=== PATIENT | female | born 1940 | race Caucasian/White ===

== ENCOUNTER 2017-05-29 20:19 | Inpatient (IN) ==
[2017-05-29 21:06] LABS: EOS# 0.03 X1000 (0.0-0.7); EOS% 1.8 % (0.0-10.0); HEMATOCRIT 17.2 % (37.0-47.0); HEMOGLOBIN 5.6 g/dL (12.0-16.0); LYMPH# 0.93 X1000 (1.2-3.4); LYMPH% 56.7 % (20.5-51.1); MANUAL DIFF NEEDED? NO; MCH 31.3 PG (27-31); MCHC 32.6 g/dL (33-37); MCV 96.1 FL (81-99); MONO# 0.15 X1000 (0.11-0.59); MONO% 9.1 % (1.7-9.3); MPV 11.8 FL (7.4-10.4); NEUT% 32.4 % (42.2-75.2); PLT 143 X1000 (130-400); RBC 1.79 XMIL (4.2-5.4)
[2017-05-29 21:18] LABS: AGAP 12; ALKALINE PHOSPHATASE 90 U/L (32-104); AMYLASE 53 U/L (20-200); BUN 11 mg/dL (8-22); CALCIUM 9.2 mg/dL (8.8-10.2); CHLORIDE 101 mmol/L (98-107); CK PROFILE 36 U/L (24-173); COSMO 273; GOT 24 U/L (10-30); GPT 16 U/L (10-36); LIPASE 58 U/L (13-60); POTASSIUM 3.9 mmol/L (3.5-5.1); SODIUM 136 mmol/L (136-145); TCO2 23 mmol/L (25-35); TOTAL BILIRUBIN 1.91 mg/dL (0.20-1.00); TOTAL PROTEIN 7.5 g/dL (6.3-8.3)
--- NOTE | 2017-05-29 22:22 | PROVIDER DOCUMENTATION ---
This chart was entered by Mariana Mena Scribe, acting as scribe for Jelani Castro Jr, MD. HPI-General Adult - General Chief Complaint: Generalized Pain Stated Complaint: LOW OXYGEN Time Seen by Provider: 05/29/17 21:13 Source: family Allergies/Adverse Reactions: Patient Allergies Allergy/AdvReac Type Severity Reaction Status Date / Time No Known Allergies Allergy Verified 05/29/17 21:42 - History of Present Illness -Gen Adult Nature of Presenting Problems: 76 Y/O F presents to ED with Generalized Pain. Pt family states that she has MDS , anemia, hx of Heart Attack Pt seen by Dr. Lawton. Pt states she has chronic arm pain but has worsened today, generalized Pain. Vomiting, constant burping. Pt had a Blood transfusion 4 units Memorial Day weekend. Location of Pain/Injury: reports: generalized Pain Radiation: reports: arm(s) Quality of Pain: reports: aching Severity: reports: moderate Onset/Duration: reports: this afternoon Timing: reports: still present Context/Activities at Onset: reports: none Associated Symptoms: reports: arm pain, muscle aches, vomiting. denies: cough, nausea Review of Systems - Adult - REVIEW OF SYSTEMS - ADULT Constitutional: denies: chills, fever Eyes: reports: no symptoms reported Ears, Nose, Mouth & Throat: reports: no symptoms reported Cardiovascular: reports: no symptoms reported Respiratory: reports: no symptoms reported Gastrointestinal: reports: vomiting. denies: abdominal pain, diarrhea, nausea Genitourinary: reports: no symptoms reported Musculoskeletal: reports: muscle aches. denies: joint pain Integumentary: reports: no symptoms reported Neurological: reports: no symptoms reported Psychiatric: reports: no symptoms reported Endocrine: reports: no symptoms reported Hematologic/Lymphatic: reports: no symptoms reported Allergic/Immunologic: reports: no symptoms reported All Other Systems: Reviewed and Negative Past History - Adult - PAST MEDICAL HISTORY-ADULT Review of Records: reports: Old Records Reviewed, Nursing Assessment Review, Medications Reviewed, Social history reviewed & non-contributory. Physical Exam-General - CONSTITUTIONAL General Appearance: no apparent distress, obese - EYES Eyes: pink conjunctivae, anisocoria, conjuctival exudate - HEAD, EARS, NOSE, MOUTH & THROAT HENMT: moist mucous membranes, normal ENT inspection - NECK Neck: full range of motion, supple, normal inspection - RESPIRATORY Respiratory: lungs clear, normal breath sounds - CARDIOVASCULAR Cardiovascular: normal peripheral pulses, regular rate, rhythm - GASTROINTESTINAL (ABDOMEN) Abdominal Exam: non tender, soft - LYMPHATIC Lymphatic: no adenopathy - MUSCULOSKELETAL Back Exam: normal inspection, no CVA tenderness Extremity: normal range of motion, non-tender - SKIN Integumentary: normal color, normal turgor - PSYCHIATRIC Psych/Mental Status: normal mood/affect, normal thought content, normal thought process, oriented x 3 Progress - PLAN OF CARE/RESULTS Progress/Plan/Lab Results: Vital Signs - 8 hr 05/29/17 20:25 Temperature 98.4 F Pulse Rate 87 Respiratory Rate 14 Blood Pressure 118/51 O2 Sat by Pulse Oximetry 100 Laboratory Results - last 24 hr 05/29/17 05/29/17 05/29/17 20:34 20:34 20:34 WBC 1.64 L RBC 1.79 L Hgb 5.6 L* Hct 17.2 L MCV 96.1 MCH 31.3 H MCHC 32.6 L RDW Std Deviation 24.5 H Plt Count 143 MPV 11.8 H Immature Gran % (Auto) 0.0 Neut % (Auto) 32.4 L Lymph % (Auto) 56.7 H Vermilion % (Auto) 9.1 Eos % (Auto) 1.8 Baso % (Auto) 0.0 Immature Gran # (Auto) 0.00 Neut # (Auto) 0.53 L Lymph # (Auto) 0.93 L Vermilion # (Auto) 0.15 Eos # (Auto) 0.03 Baso # (Auto) 0.00 Sodium 136 Potassium 3.9 Chloride 101 Carbon Dioxide 23 L Anion Gap 12 BUN 11 Creatinine 0.7 Estimated GFR/1.73 m2 > 60 BUN/Creatinine Ratio 16 Glucose 123 H Calculated Osmolality 273 Calcium 9.2 Total Bilirubin 1.91 H AST 24 ALT 16 Alkaline Phosphatase 90 Creatine Kinase 36 Troponin T 0.014 Total Protein 7.5 Albumin 4.0 Globulin 3.5 Albumin/Globulin Ratio 1.1 Amylase 53 Lipase 58 Orders Category Date Time Status AMYLASE [CHEM] Stat Lab 05/29/17 20:34 Completed CBC WITH ELECTRONIC DIFF [HEME] Stat Lab 05/29/17 20:34 Completed CK PROFILE [SP CHEM] Stat Lab 05/29/17 20:34 Completed COMPREHENSIVE METABOLIC PANEL [CHEM] Stat Lab 05/29/17 20:34 Completed LIPASE [CHEM] Stat Lab 05/29/17 20:34 Completed PROTIME WITH INR [COAG] Stat Lab 05/29/17 20:34 Received TROPONIN T Stat Lab 05/29/17 20:34 Completed EKG [EKG] Stat Ther 05/29/17 20:27 Ordered Result Diagrams: 05/29/17 20:34 05/29/17 20:34 - EKG 1 Time of EKG reading by physician:: 20:30 EKG Read and Signed by:: Jelani Castro Jr EKG Interpretation (*Must complete 3 of following elements*): Normal Rate: 91 Rhythm: NSR Comments: Anteroseptal infract,Abnormal ECG - CONSULTS/PCP/HOSPITALIST Notification #1 *Consult/PCP/Hospitalist*: Dr. Avelar Time Discussed: 22:05 Reason/Comments: Admit Consult Disposition: Admit (Admit Accepted) Departure - Departure Date of Disposition Decision: 05/29/17 Time of Disposition Decision: 22:14 DIAGNOSIS: Myelodysplastic disease, not classified Anemia Qualifiers: Anemia type: unspecified type Qualified Code(s): D64.9 - Anemia, unspecified Disposition: ADMITTED INPATIENT 09 Certified Medical Emergency: Emergent Condition: Fair Referrals and Follow-Ups: Chiqutia Jessica [Primary Care Provider] - - Critical Care Note This patient required my direct & personal management of CC.: No This chart was documented by the indicated scribe, (Mariana Mena Scribe) and accurately reflects the services I performed and decisions made by me, Jelani Castro Jr, MD, as attested by the provider's signature.
[2017-05-29 23:45] LABS: PROTIME 10.5 Seconds (9.2-11.7)
[2017-05-30] MEDS ORDERED: PEPCID IV ONE (00:09)
[2017-05-30] MEDS ORDERED: MORPHINE IV ONE ×2 (00:09→01:07)
[2017-05-30] MEDS ORDERED: SODIUM CHLORIDE 0.9% INJ ONE (00:09)
[2017-05-30] MEDS ORDERED: NS 250 ML ONE (00:17)
[2017-05-30] MEDS ORDERED: MORPHINE IV PRN ×2 (00:43→01:07)
[2017-05-30] MEDS ORDERED: ZOFRAN IV PRN (00:44)
[2017-05-30] MEDS ORDERED: G.I. COCKTAIL PO ONE (00:44)
[2017-05-30] MEDS ORDERED: TYLENOL PO ONE (01:06)
[2017-05-30] MEDS ORDERED: MYLICON PO PRN (01:07)
[2017-05-30] MEDS ORDERED: CHOLECALCIFEROL 50000 UNIT PO SCH (01:15)
[2017-05-30] MEDS: BENADRYL PO ONE ×2 (01:46→08:24)
--- NOTE | 2017-05-30 05:31 | EKG Report ---
Test Performed on : 05/29/2017 8:30:07 PM Test Reason : PAIN. Blood Pressure : / mmHG Vent. Rate : 091 BPM Atrial Rate : 091 BPM P-R Int : 140 ms QRS Dur : 082 ms QT Int : 392 ms P-R-T Axes : 042 029 036 degrees QTc Int : 482 ms Normal sinus rhythm. Anteroseptal infarct , age undetermined Abnormal ECG No previous ECGs available Unconfirmed Result
--- NOTE | 2017-05-30 06:16 | HISTORY AND PHYSICAL ---
CHIEF COMPLAINT: Right arm pain. HISTORY OF PRESENT ILLNESS: This is a 76-year-old female who came in from home with complaints of right-sided arm pain. She has a history of myelodysplastic syndrome. I think it has been relatively recently diagnosed. She had transfusions done about a month ago. She is seen by the [facility] in [place]. I am not sure who her primary oncologist is. Her family is uncertain about that. I think she was diagnosed with it recently after bone marrow biopsy because she had sustained anemia then. She has been complaining of pain, constant burping, vomiting, intermittent emesis and she is still having those issues now. Her hemoglobin was 5.6, so she was admitted for transfusion essentially. PAST MEDICAL HISTORY: 1. MDS. 2. Hypertension. 3. CAD. 4. Hypothyroidism. 5. Dyslipidemia. PAST SURGICAL HISTORY: She has had the cholecystectomy. SOCIAL HISTORY: No tobacco or ethanol. ALLERGIES: No known drug allergies. REVIEW OF SYSTEMS: Negative x10 point review of systems. All other systems reviewed and are negative. PHYSICAL EXAMINATION: VITAL SIGNS: Blood pressure 103/65, heart rate of 93, respiratory rate 18, temp 98.4 degrees. GENERAL: A well-developed female, in no acute distress. HEAD: Normocephalic, atraumatic. EYES: Pupils equal, round, reactive to light. Extraocular movements were intact. EAR/NOSE/THROAT: She had moist mucous membranes. NECK: Supple. CARDIOVASCULAR: Regular rate and rhythm. No murmurs, gallops, or rubs. PULMONARY: Bilateral breath sounds. Clear to auscultation. GI: Soft, nontender, nondistended. Bowel sounds were positive. LABORATORY DATA: White count 1.6. Hemoglobin 5 and hematocrit 17, platelets of 143,000. CMP was normal except for T bilirubin of 1.9. Troponins were negative. EKG showed possible anterior septal defect, and was otherwise negative. I do not think any imaging was done. ASSESSMENT: This is a 76-year-old female with myelodysplastic syndrome, who presents with symptomatic anemia and then kind of various gastrointestinal complaints. 1. Symptomatic anemia, myelodysplastic syndrome. We will give 2 units of blood and repeat hemoglobin and hematocrit and follow. I am going to get representatives from [facility] to check on her while she is here. Further workup as dictated per them. I will check a Hemoccult. 2. Gastrointestinal. She is having some frequent dyspepsia. We will treat with proton pump inhibitor. I am going to start off with just plain films of her abdomen. She does not have a gallbladder anymore. I do not think she is having any biliary colic despite her bilirubin being slightly elevated. Further testing per her clinical course. 3. Coronary artery disease. Appears to be stable. We will continue regular medications. I am going to do another set of cardiac enzymes and follow. DISPOSITION: Pending her clinical course. cc: MD Chiquita Urbina MD
--- NOTE | 2017-05-30 06:26 | Diag Imaging Result Doc PS360 ---
EXAM: FLAT/UPRIGHT ABD/1 VIEW CHEST HISTORY: abdominal pain TECHNIQUE: Three views Findings: The lungs are well expanded. There are infiltrates in the mid and lower lungs. No free air beneath the diaphragm. Mildly air distended loops of bowel several air-fluid levels in the right abdomen. No organomegaly. Mild scoliosis. IMPRESSION: 1.Mid and lower lung infiltrates 2.Ileus versus partial obstruction. Follow-up films recommended. Electronically signed by Vince Justice 05/30/2017 6:24 AM
--- NOTE | 2017-05-30 06:35 | EKG Report ---
Test Performed on : 05/30/2017 06:06:26 AM Test Reason : previous abnormal ekg Blood Pressure : / mmHG Vent. Rate : 088 BPM Atrial Rate : 088 BPM P-R Int : 158 ms QRS Dur : 076 ms QT Int : 374 ms P-R-T Axes : 052 063 065 degrees QTc Int : 452 ms Normal sinus rhythm. Septal infarct (cited on or before 29-MAY-2017) Abnormal ECG When compared with ECG of 29-MAY-2017 20:30, (Unconfirmed) No significant change was found Confirmed by Jhon RIZO, Pato Doe ([id number]) on 05/30/2017 11:18:05 AM
[2017-05-30] MEDS: COREG PO SCH ×3 (08:21→17:29)
[2017-05-30] MEDS: LIPITOR PO SCH (08:21)
[2017-05-30] MEDS: ASPIRIN PO SCH (08:21)
[2017-05-30] MEDS: SYNTHROID PO SCH (08:21)
[2017-05-30] MEDS: COZAAR PO SCH (08:21)
[2017-05-30] MEDS: PRILOSEC PO SCH (08:23)
[2017-05-30] MEDS ORDERED: NON-FORMULARY MED (Cyanocobalamin (Vitamin B-12) [Vitamin B-12] 1,000 MCG) SUBQ SCH (09:00)
[2017-05-30 12:00] LABS: MANUAL DIFF NEEDED? NO
[2017-05-30 12:19] LABS: BASO% 0.6 % (0.0-0.8); EOS# 0.03 X1000 (0.0-0.7); EOS% 1.7 % (0.0-10.0); HEMATOCRIT 22.9 % (37.0-47.0); HEMOGLOBIN 7.6 g/dL (12.0-16.0); LYMPH# 0.88 X1000 (1.2-3.4); LYMPH% 49.4 % (20.5-51.1); MCHC 33.2 g/dL (33-37); MCV 93.5 FL (81-99); MONO% 11.2 % (1.7-9.3); MPV 12.5 FL (7.4-10.4); NEUT% 37.1 % (42.2-75.2); PLT 131 X1000 (130-400); RBC 2.45 XMIL (4.2-5.4)
[2017-05-30 12:35] LABS: AGAP 13; BUN 10 mg/dL (8-22); CALCIUM 8.5 mg/dL (8.8-10.2); CHLORIDE 99 mmol/L (98-107); COSMO 271; SODIUM 135 mmol/L (136-145); TCO2 23 mmol/L (25-35)
--- NOTE | 2017-05-30 14:41 | PROGRESS NOTE ---
DATE: 05/30/2017 SUBJECTIVE: This patient feels better. She has not complaining of chest pain or shortness of breath, just generalized weakness. Family members are at the bedside. All their questions were answered. OBJECTIVE: Vital Signs: Temperature 97.9 degrees, pulse 83, respiratory rate 18, blood pressure 111/54, oxygen saturation 92 on room air. HEENT: Head normocephalic. No trauma. PERRLA. Neck: Supple. No JVD. No masses. Central trachea. Chest: Clear to auscultation. No wheezing. Mild rales at the bases. Abdomen: Soft, nontender. Mildly distended. No hepatosplenomegaly. Extremities: No edema. No clubbing. No cyanosis. Neurological: The patient is alert and oriented x3. No focal neurological deficits. LABORATORY: WBC 1.7, hemoglobin 7.6, hematocrit 22.9, platelet 131,000. Sodium 135, potassium 4, chloride 99, bicarbonate 23, BUN 10, creatinine 0.6, glucose 124, calcium 8.5. ASSESSMENT AND PLAN: 1. Symptomatic anemia/myelodysplastic syndrome. She received already 2 units of PRBCs and the hemoglobin increased from 5.6 to 7.6. This patient feels better. Pending hematology recommendations. 2. Gastroesophageal reflux disease. Will continue with PPIs. We had an abdominal x-ray that showed the possibility of obstruction. This patient's physical exam is benign but I will continue to monitor. 3. History of coronary artery disease. No chest pain at this moment. 4. Hypertension, stable. Continue with the same treatment. 5. Hypothyroidism. Continue with levothyroxine. cc: Pop Best MD
--- NOTE | 2017-05-30 16:32 | CONSULTATION ---
DATE OF CONSULTATION: 05/30/2017 CONSULTATION REQUESTED BY: The hospitalist service. REASON FOR CONSULTATION: MDS. HISTORY OF PRESENT ILLNESS: Ms. Faust is a 76-year-old female, who is actually being seen by Dr. Julito oconnell at the [facility] in [place]. She is currently being worked up for MDS. She presented to the [facility] Emergency Department complaining of right-sided arm pain that was traveling up into her shoulders. The patient and her family felt that she was having a cardiac event. Patient does have a history of coronary artery disease. Upon admission, the patient was actually found to have a very low hemoglobin of 5.6. She has now been admitted for transfusion. Patient has already begun workup as previously mentioned; has had a bone marrow biopsy as well as additional testing done on an outpatient basis. Those results are currently pending. PAST MEDICAL HISTORY: 1. MDS. 2. Hypertension. 3. CAD. 4. Hypothyroidism. 5. Dyslipidemia. PAST SURGICAL HISTORY: Patient has had a cholecystectomy previously. Also, cataract surgery. SOCIAL HISTORY: The patient denies any tobacco or alcohol use. She also denies any illicit drug use. FAMILY HISTORY: The patient has no known malignancies or blood disorders within her family. REVIEW OF SYSTEMS: A 10 point review of systems has been completed and is found to be negative, except for what has been expressed in the HPI. PHYSICAL EXAMINATION: Vital Signs: Temperature 97.9 degrees, heart rate 83, respirations 18, blood pressure 111/54, O2 saturation is 92% on room air. General: female sitting up in hospital bed. She is in no acute distress. HEENT: Head normocephalic, atraumatic. Eyes: Pupils equal, round, reactive. Ears, nose, throat, neck, and mouth: Oral mucosa is normal. Trachea is midline. Cardiovascular: S1, S2 heard. Regular rate and rhythm. Respiratory: Clear to auscultation bilaterally with normal respiratory effort. Abdomen: Soft, nontender, nondistended. Positive bowel sounds. Musculoskeletal: No obvious arthritic changes noted. Extremities: Some trace bilateral extremity edema. Neurologic: Patient is alert. She seems somewhat hard of hearing. Otherwise in no sort of distress and no focal motor deficits noted. LABS AND STUDIES: On admission, patient had a white blood cell count of 1.64, hemoglobin 5.6, hematocrit 17.2, platelet count of 143. Sodium 136, potassium 3.9, chloride 101, CO2 26, BUN 11, creatinine 0.7, glucose 123. Cardiac enzymes have been negative. Abdominal x-ray has ileus versus partial obstruction. Followup films recommended. ASSESSMENT AND PLAN: 1. Myelodysplastic syndrome. Supportive care at this point. We will need to wait for final testing before any treatment can be initiated. Patient has received 2 units of packed red blood cells. Plan is to recheck her complete blood count, and then likely discharge her either today or tomorrow. She will need follow up with Dr. Julito oconnell at the [facility]. 2. Abdominal pain. It seems to have resolved. No nausea or vomiting. 3. Shoulder and some chest pain. This seems to have also improved. Seems to have been related to her low hemoglobin. We want to thank you for consulting us on Ms. Faust while she is [facility]. Will continue to follow along and adjust our treatment plan per her hospital course. Dictated by SOCORRO Coffman for Jenniffer Adamson MD cc: Jenniffer Adamson MD
[2017-05-30] MEDS ORDERED: SEROQUEL PO SCH (21:00)
[2017-05-30] MEDS ORDERED: MELATONIN PO ONE (21:47)
[2017-05-30] MEDS ORDERED: HALDOL IV ONE (22:41)
[2017-05-31] MEDS ORDERED: XANAX PO ONE (05:16)
[2017-05-31] MEDS: PRILOSEC PO SCH (06:02)
[2017-05-31 06:34] LABS: EOS# 0.05 X1000 (0.0-0.7); EOS% 3.2 % (0.0-10.0); HEMATOCRIT 20.5 % (37.0-47.0); HEMOGLOBIN 6.8 g/dL (12.0-16.0); LYMPH# 1.02 X1000 (1.2-3.4); LYMPH% 65.4 % (20.5-51.1); MANUAL DIFF NEEDED? YES; MCH 31.2 PG (27-31); MCHC 33.2 g/dL (33-37); MONO# 0.16 X1000 (0.11-0.59); MONO% 10.3 % (1.7-9.3); MPV 11.9 FL (7.4-10.4); NEUT% 21.1 % (42.2-75.2); PLT 112 X1000 (130-400); RBC 2.18 XMIL (4.2-5.4)
[2017-05-31 06:57] LABS: LYMPHS 70 % (21-51); MONO 10 % (1-9)
[2017-05-31 07:05] LABS: AGAP 11; BUN 10 mg/dL (8-22); CALCIUM 8.7 mg/dL (8.8-10.2); CHLORIDE 102 mmol/L (98-107); COSMO 276; POTASSIUM 3.8 mmol/L (3.5-5.1); SODIUM 138 mmol/L (136-145); TCO2 25 mmol/L (25-35)
[2017-05-31] MEDS: ASPIRIN PO SCH (08:02)
[2017-05-31] MEDS: COZAAR PO SCH (08:02)
[2017-05-31] MEDS: COREG PO SCH ×4 (08:02→23:47)
[2017-05-31] MEDS: SYNTHROID PO SCH (08:02)
[2017-05-31] MEDS: LIPITOR PO SCH (08:02)
[2017-05-31] MEDS ORDERED: NS 250 ML ONE (08:37)
--- NOTE | 2017-05-31 14:55 | PROGRESS NOTE ---
DATE: 05/31/2017 SUBJECTIVE: This patient feels better. She is not complaining of chest pain or shortness of breath or dizziness, family members at the bedside. All their questions were answered. OBJECTIVE: Vital Signs: Temperature 98.6 degrees, pulse 84, respiratory rate 14, blood pressure 114/61, oxygen saturation 95% on room air. HEENT: Head normocephalic. No trauma. PERRLA. Neck: Supple. No JVD. No masses. Central trachea. Chest: Clear to auscultation. No wheezing. No rales. Abdomen: Soft, nontender, nondistended. No hepatosplenomegaly. Obese. Extremities: No edema. No clubbing. No cyanosis. Neurological: The patient is alert and oriented x3. No focal deficits. LABORATORY: WBC 1.5, hemoglobin 6.8, hematocrit 20.5, platelets 112,000. Sodium 138, potassium 3.8, chloride 102, bicarbonate 25, BUN 10, creatinine 0.7, glucose 114, calcium 8.7. ASSESSMENT AND PLAN: 1. Symptomatic anemia/myelodysplastic syndrome. She received already 2 units of packed red blood cells and today I will transfuse this patient again because her hemoglobin was 6.9, this patient is feeling better. Hematology/Oncology is on board. If she is stable in the next couple days I will discharge this patient. 2. Gastroesophageal reflux disease. Continue with PPIs. 3. History of coronary artery disease. No chest pain at this moment. 4. Hypertension stable. Continue the same management. 5. Hypothyroidism. Continue with levothyroxine. cc: Pop Best MD
[2017-05-31] MEDS: MELATONIN PO SCH (22:38)
[2017-06-01 06:20] LABS: MANUAL DIFF NEEDED? NO
[2017-06-01 06:35] LABS: BASO% 0.5 % (0.0-0.8); EOS# 0.07 X1000 (0.0-0.7); EOS% 3.7 % (0.0-10.0); HEMATOCRIT 25.8 % (37.0-47.0); HEMOGLOBIN 8.6 g/dL (12.0-16.0); LYMPH# 0.94 X1000 (1.2-3.4); LYMPH% 49.2 % (20.5-51.1); MCH 29.8 PG (27-31); MCHC 33.3 g/dL (33-37); MCV 89.3 FL (81-99); MONO# 0.22 X1000 (0.11-0.59); MONO% 11.5 % (1.7-9.3); MPV 11.8 FL (7.4-10.4); NEUT% 35.1 % (42.2-75.2); PLT 108 X1000 (130-400); RBC 2.89 XMIL (4.2-5.4)
[2017-06-01] MEDS: SYNTHROID PO SCH (08:49)
[2017-06-01] MEDS: LIPITOR PO SCH (08:49)
[2017-06-01] MEDS: ASPIRIN PO SCH (08:49)
[2017-06-01] MEDS: COZAAR PO SCH (08:49)
[2017-06-01] MEDS: COREG PO SCH ×3 (08:49→21:45)
[2017-06-01] MEDS ORDERED: IMODIUM PO PRN (13:45)
--- NOTE | 2017-06-01 14:41 | PROGRESS NOTE ---
DATE: 06/01/2017 SUBJECTIVE: This patient feels better. She is tolerating p.o. and ambulating. As per the daughter and the patient she has been having chronic diarrhea but she has been having more frequent bowel movements since yesterday and also today, C. difficile toxin is negative. No complaints today. OBJECTIVE: Vital Signs: Temperature 98.6 degrees, pulse 84, respiratory rate 20, blood pressure 140/63, O2 saturation 94% on room air. HEENT: Head normocephalic. No trauma. PERRLA. Neck: Supple. No JVD. No masses. Central trachea. Chest: Clear to auscultation. No wheezing. No rales. Abdomen: Soft, nontender, nondistended. No hepatosplenomegaly. Extremities: No edema. No clubbing. No cyanosis. Neurological: The patient is alert and oriented x3. No focal deficits. LABORATORY: WBC 1.9, hemoglobin 8.6, hematocrit 25.8, platelets 108,000. ASSESSMENT AND PLAN: 1. Symptomatic anemia/myelodysplastic syndrome. She received 2 units of packed red blood cells yesterday and the hemoglobin improved from 6.9 to 8.6. This patient is feeling good. No complaints today. 2. Gastroesophageal reflux disease. Continue with PPIs. 3. History of coronary artery disease. No chest pain at this moment. 4. Chronic diarrhea. Aware. 5. Hypertension stable. 6. Hypothyroidism. Continue with levothyroxine. cc: Pop Best MD
[2017-06-01] MEDS: MELATONIN PO SCH (21:44)
[2017-06-02] MEDS: PRILOSEC PO SCH ×2 (06:51→07:41)
[2017-06-02 07:03] LABS: EOS# 0.04 X1000 (0.0-0.7); EOS% 2.5 % (0.0-10.0); HEMATOCRIT 25.9 % (37.0-47.0); HEMOGLOBIN 8.6 g/dL (12.0-16.0); LYMPH# 0.85 X1000 (1.2-3.4); LYMPH% 53.5 % (20.5-51.1); MANUAL DIFF NEEDED? YES; MCH 29.6 PG (27-31); MCHC 33.2 g/dL (33-37); MONO# 0.21 X1000 (0.11-0.59); MONO% 13.2 % (1.7-9.3); MPV 12.1 FL (7.4-10.4); NEUT% 30.8 % (42.2-75.2); PLT 105 X1000 (130-400); RBC 2.91 XMIL (4.2-5.4)
[2017-06-02 07:18] LABS: AGAP 11; BUN 8 mg/dL (8-22); CALCIUM 8.6 mg/dL (8.8-10.2); CHLORIDE 102 mmol/L (98-107); COSMO 276; POTASSIUM 3.8 mmol/L (3.5-5.1); SODIUM 139 mmol/L (136-145); TCO2 26 mmol/L (25-35)
[2017-06-02] MEDS: ASPIRIN PO SCH (09:10)
[2017-06-02] MEDS: LIPITOR PO SCH (09:10)
[2017-06-02] MEDS: SYNTHROID PO SCH (09:10)
[2017-06-02] MEDS: COREG PO SCH ×2 (09:58→14:00)
[2017-06-02] MEDS: COZAAR PO SCH (09:58)
[2017-06-02 13:52] VITALS: BP 134/63
--- NOTE | 2017-06-02 14:40 | PROGRESS NOTE ---
DATE: 06/02/2017 SUBJECTIVE: Ms. Faust's counts have stabilized. Her hemoglobin is 8.6 today. Her platelets are stable at 105. Her ANC is at 0.49. She does have suspected MDS that will likely require treatment. We recommend at this time that the patient be followed with an outpatient. We will plan for her to have a CBC at our office on Friday just to check her counts. She is already scheduled to see Dr. Julito oconnell at the [facility] on 06/10/2017. We have encouraged her to keep that appointment. Dictated by SOCORRO Coffman for Jenniffer Adamson MD cc: Jenniffer Adamson MD
--- NOTE | 2017-06-02 20:49 | DISCHARGE SUMMARY ---
ADMISSION DATE: 05/31/2017 DISCHARGE DATE: 06/02/2017 DISCHARGE DIAGNOSES: 1. Symptomatic anemia. 2. Myelodysplastic syndrome. 3. Gastroesophageal reflux disease. 4. History of coronary artery disease. 5. Chronic diarrhea. 6. Hypertension. 7. Hypothyroidism. HOSPITAL COURSE: A 76-year-old female came from home with complaint of right-sided arm pain. She has a history of myelodysplastic syndrome and has been recently diagnosed. She had blood transfusions done about 1 month ago and she has been followed by the [facility] in [place]. She came to emergency because of pain, constant burping, vomiting, and intermittent emesis. Her hemoglobin on admission was 5.6 and she has been admitted for transfusion and monitoring. This patient received a total 4 PRBCs in the course of her hospital hospitalization. Dr. Jenniffer Adamson evaluated this patient and basically we are treating her condition symptomatically. She received 2 units of PRBCs a couple of days ago and her hemoglobin and hematocrit has been stable since then. She has no symptoms now. She is tolerating p.o. and ambulating. Family members are at the bedside. This is why we decided to discharge this patient with active followup by her primary oncologist on 06/10/2017, but Dr. Jenniffer Adamson wants to see this patient next Friday and probably she will get some lab work done. DISCHARGE MEDICATIONS: 1. Melatonin 5 mg p.o. daily. 2. Levofloxacin 250 mg p.o. daily. 3. Vitamin B12, 1000 mcg subcutaneously daily. 4. Nitroglycerin 1 inch topically every 6 hours. 5. Atorvastatin 40 mg p.o. daily. 6. Losartan 25 mg p.o. daily. 7. Carvedilol 6.25 mg p.o. 3 times a day. 8. Levothyroxine 25 mg p.o. daily. 9. Vitamin D3, 50,000 units as directed. 10. Aspirin 81 mg p.o. daily. PHYSICAL EXAMINATION: Vital Signs: Temperature 98.4 degrees, pulse 71, respiratory rate 20, blood pressure 134/63, O2 saturation 96 on room air. HEENT: Head normocephalic. No trauma. PERRLA. Neck: Supple. No JVD. No masses. Central trachea. Chest: Clear to auscultation. No wheezing. No rales. Abdomen: Soft, nontender, nondistended. No hepatosplenomegaly. Cardiovascular: RRR. No murmurs. Extremities: No edema. No clubbing. No cyanosis. Neurological Examination: The patient is alert and oriented x3. No focal neurological deficits. LABORATORY: WBC 1.59, hemoglobin 8.6, hematocrit 25.9, platelets 105,000. Sodium 139, potassium 3.8, chloride 102, bicarbonate 26, BUN 8, creatinine 0.6, glucose 105, calcium 8.6. FOLLOWUP: Followup by her primary oncologist on 06/10/2017. Followup by Dr. Jenniffer Adamson next Friday. TOTAL TIME SPENT ON DISCHARGE: 35 minutes. cc: Pop Best MD
== END 2017-06-02 15:15 | disposition home health service (06) ==
LOC: 3N 20:19 → ED 20:19 → SUATTDRO 23:00
PROVIDERS: ATTEND Internal Medicine